=== PATIENT | female | born 2000 | race Caucasian/White ===

== ENCOUNTER 2024-08-07 09:37 | Inpatient (IN) | payer BC, SELFPAY ==
[2024-08-07] VITALS (17 sets, daily range): BP systolic 110–151; BP diastolic 65–116; PULSE 57–128; RESP 16–20; TEMP 35.7–36.9; O2SAT 95–100; BMI 37.6
[2024-08-07] MEDS: Lactated Ringers 1,000 ML 999 ML IV (10:10)
[2024-08-07 10:51] LABS: Absolute Lymphocyte Count 2.39 X10^3/uL (0.83-4.51); Absolute Neutrophil Count 7.8 X10^3/uL (2.0-7.7); Basophil# 0.05 X10^3/uL; Basophil% 0.5 % (0-1); Eosinophil# 0.04 X10^3/uL; Eosinophils% 0.4 % (0-5); Hematocrit 35.7 % (37-47); Hemoglobin 11.8 g/dL (12.0-15.0); Lymphocyte # 2.39 X10^3/ul (0.83-4.51); Lymphocyte % 21.7 % (19-41); Mean Corp Hgb Conc 33.1 g/dL (32-36); Mean Corpuscular Hgb 28.2 pg (27.0-32.0); Mean Corpuscular Volume 85.4 fL (81-99); Mean Platelet Vol. 11.8 fl (6.2-12.0); Monocyte# 0.68 X10^3/uL; Monocyte% 6.2 % (0-10); NRBC Flagged by Analyzer 0 % (0-5); Neutrophil # 7.76 X10^3/uL (2.7-7.7); Neutrophil % 70.4 % (47-70); Platelet Count 286 K/mm3 (150-450); RBC Distribution Width CV 12.7 % (11.6-14.6); Red Blood Count 4.18 M/mm3 (4.2-5.4)
[2024-08-07] MEDS: Lactated Ringers 1,000 ML 150 ML IV (11:12)
[2024-08-07 11:31] LABS: Syphilis Antibodies Nonreactive (Nonreactive)
[2024-08-07] MEDS: Acetaminophen 500 MG Tablet 1000 MG PO ×2 (12:03→18:01)
[2024-08-07] MEDS: Sodium Citrate/Citric Acid 30 ML UDC PO (12:03)
[2024-08-07] MEDS: Cefazolin 2 GM in 0.9% Normal Saline (100mL Bag) 100 ML IV (12:03)
--- NOTE | 2024-08-07 12:05 | PCM.HP.OB ---
HPI - General General Date of Admission: 08/07/24 Date of Service: 08/07/24 Chief Complaint: primary c/s HPI Narrative AMNA WILLIS, is a 23 F who presents PCS for LGA. Maternal Data Information Final KODY: 08/14/24 Gestational age: 39 PFSH PFS Medical History (Updated 08/07/24 @ 12:[address] Marlys Hall MD) Family history of hearing loss at age younger than 7 years Polyhydramnios Anxiety Home Medications ?Medication ?Instructions ?Recorded ?Last Taken ?Type aspirin 81 mg tablet,delayed 81 mg PO DAILY 08/07/24 Unknown History release vit no.95-ferrous 1 tab PO DAILY 08/07/24 Unknown History fumarate 28 mg-folic acid 800 mcg tablet () Allergy/AdvReac Type Severity Reaction Status Date / Time No Known Allergies Allergy Verified 08/07/24 09:49 Surgical History (Updated 08/07/24 @ 10:37 by Venecia Shelby) History of surgery Social History Smoking Status: Former smoker History 1 Elective abortions Hx Para 0 Spontaneous abortions Hx # Term Pregnancies Ectopic pregnancies Hx # Pregnancies Multiple births # of living children NST FHR Rate Baby A NST Reactive:: Yes ROS Constitutional Constitutional: Denies fatigue, fever(s) or malaise Eyes Eyes: Denies change in vision ENT HEENT: Denies dizziness or headache(s) Cardiovascular Cardiovascular: Denies chest pain, dyspnea or lightheadedness Respiratory/Chest Respiratory/Chest: Denies cough or dyspnea Gastrointestinal Gastrointestinal: Denies change in bowel habits Genitourinary Genitourinary: Denies burning urination or genital lesions Integumentary Integumentary: Denies rash Neurologic Neurologic: Denies confusion, dizziness, headache(s), numbness or weakness Vital Signs Vital Signs Vital Signs: 08/07/24 10:16 08/07/24 10:16 08/07/24 10:16 Temperature Temperature Source Temporal Pulse Rate 115 H Respiratory Rate Blood Pressure 124/77 H BP Systolic 124 BP Diastolic 77 Pulse Ox 08/07/24 10:16 08/07/24 10:16 08/07/24 10:16 Temperature 98.2 F Temperature Source Pulse Rate Respiratory Rate 18 Blood Pressure BP Systolic BP Diastolic Pulse Ox 96 Weight Weight: 109 kg Body Mass Index (BMI) 37.6 Physical Exam Const alert and no apparent distress General Appearance: cooperative HEENT normocephalic Resp normal respiratory effort Cardio regular rate GI soft to palpation GI Narrative: gravid, nontender, appropriate for gestational age Extremity no calf tenderness General Extremity: edema Skin no wounds Rashes: No rashes noted Psych activity/motor behavior normal Labs Labs Labs: Blood Type AB POSITIVE Antibody Screen NEGATIVE Hct 35.7 % (37-47) L Hgb 11.8 g/dL (12.0-15.0) L Syphilis Total Ab Nonreactive (Nonreactive) Assessment & Plan (1) LGA (large for gestational age) fetus: (2) 39 weeks gestation of : PLAN: Plan PCS
[2024-08-07 12:50] LABS: Amphetamine Urine NEGATIVE (<1000 ng/mL); Barbiturate Urine NEGATIVE (< 200 ng/mL); Benzodiazepine Urine NEGATIVE (< 200 ng/mL); Buprenorphine Urine NEGATIVE (< 200 ng/mL); Cocaine Urine NEGATIVE (< 300 ng/mL); Fentanyl, Urine NEGATIVE; Methadone Urine NEGATIVE (< 300 ng/mL); Opiates Urine NEGATIVE (< 300 ng/mL); Oxycodone, Urine NEGATIVE (< 100 ng/mL); PCP Urine NEGATIVE (< 25 ng/mL); THC Urine NEGATIVE (< 50 ng/mL)
--- NOTE | 2024-08-07 13:01 | EX.PCM.OBRPT ---
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 She was prepped and draped in the normal sterile fashion. A Pfannenstiel incision was made and carried down to the underlying fascia. The fascia was incised in the midline and extended laterally. The fascia was dissected from the muscle. The muscles divided in the midline. The peritoneum was entered bluntly and extended manually. A bladder blade was placed. A bladder flap was created. A low transverse incision was made and extended bluntly. The head was elevated to the incision. The shoulders delivered easily. The infant cried upon delivery. The cord was cut and clamped. The placenta was delivered with nakia traction. The uterus was exteriorized and cleared of all clot and debris. The incision was repaired with 1-0 Vicryl x 2. The uterus was returned the abdomen, The gutter cleared of all clots. The peritoneum was closed with 2-0 Monocryl. The fascia was closed with 1-0 Vicryl. The subcutaneous tissue was reapproximated with 2-0 Monocryl The skin was closed with 4-0. I performed the major parts of the procedure with the RFNA assisting with retraction and closing the skin. The sponge lap and needle count was correct x 2 Surgical findings: normal anatomy Presentation: Vertex and LOP Amniotic Membrane Rupture Type: Artificial Amniotic Fluid Description: Clear Placental Delivery Description: Manual Removal Placenta Disposition: [facility] Specimen collected: No Cord Vessel Description: 3 Vessels Cord Entanglement: None Infant A gender: Female (1 minute): 8 (5 minute): 9 Delayed Cord Clamping: Yes Public Safety Officer final cigar and box examiner: Yes Boiler Control Room Operator: Coty Valles Tasks completed by financial administrative assistant: Opening & closing and Retracting Additional business office assistant?: No Complications Complications: No
--- NOTE | 2024-08-07 13:02 | PCM.POST.ANE ---
Anesthesia: Postop Eval I Current Vital Signs Temperature: 97 F Pulse Rate: 75 Blood Pressure: 116/65 Respiratory Rate: 16 Pulse Ox: 100 Oxygen Delivery Method: Room Air Assessment Airway patent: Yes Spontaneous unlabored respirations: Yes Mental status: Awake and Calm nausea: No Vomiting: No Anesthesia Complication: No Fluid Hydration Crystalloid volume administer (ml): 1,000 Total IV fluid infused: 1,000 Progress Note Anesthesia document: Postop Eval 1 completed: Yes
--- NOTE | 2024-08-07 13:05 | POSTOPAN2_ITS ---
Anesthesia Postop Eval I Sum Postop Eval Completion status Anesthesia document: Postop Eval 1 completed: Yes Anesthesia Postop Eval I Summary Anesthesia Postop Eval I Summary: Anesthesia Postop Eval I: Assessment Summary Airway patent Yes 08/07/24 13:02 PRODUCT DEVELOPMENT CONSULTANT.MDOT Spontaneous unlabored Yes 08/07/24 13:02 PRODUCT DEVELOPMENT CONSULTANT.MDOT respirations Mental status Awake,Calm 08/07/24 13:02 PRODUCT DEVELOPMENT CONSULTANT.MDOT nausea No 08/07/24 13:02 PRODUCT DEVELOPMENT CONSULTANT.MDOT Vomiting No 08/07/24 13:02 PRODUCT DEVELOPMENT CONSULTANT.MDOT Anesthesia Postop Eval I: Fluid Summary Crystalloid volume administer 1,000 08/07/24 13:02 PRODUCT DEVELOPMENT CONSULTANT.MDOT (ml) Colloids volume administered ( ml) Blood Product volume administered (ml) Total IV fluid infused 1,000 08/07/24 13:02 PRODUCT DEVELOPMENT CONSULTANT.MDOT Anesthesia Postop Eval I: Summary Notes Anesthesia Complication No 08/07/24 13:02 PRODUCT DEVELOPMENT CONSULTANT.MDOT Anesthesia Complication Comment: Post-operative progress note Anesthesia: Postop Eval II Evaluation Mental status: Awake and Calm Pain Level: 0 nausea: No Vomiting: No Complications Anesthesia Complication: No
--- NOTE | 2024-08-07 13:05 | PCM.POSTANE2 ---
Anesthesia Postop Eval I Sum Postop Eval Completion status Anesthesia document: Postop Eval 1 completed: Yes Anesthesia Postop Eval I Summary Anesthesia Postop Eval I Summary: Anesthesia Postop Eval I: Assessment Summary Airway patent Yes 08/07/24 13:02 JUNIOR HIGH MATH TEACHER.MDOT Spontaneous unlabored Yes 08/07/24 13:02 JUNIOR HIGH MATH TEACHER.MDOT respirations Mental status Awake,Calm 08/07/24 13:02 JUNIOR HIGH MATH TEACHER.MDOT nausea No 08/07/24 13:02 JUNIOR HIGH MATH TEACHER.MDOT Vomiting No 08/07/24 13:02 JUNIOR HIGH MATH TEACHER.MDOT Anesthesia Postop Eval I: Fluid Summary Crystalloid volume administer 1,000 08/07/24 13:02 JUNIOR HIGH MATH TEACHER.MDOT (ml) Colloids volume administered ( ml) Blood Product volume administered (ml) Total IV fluid infused 1,000 08/07/24 13:02 JUNIOR HIGH MATH TEACHER.MDOT Anesthesia Postop Eval I: Summary Notes Anesthesia Complication No 08/07/24 13:02 JUNIOR HIGH MATH TEACHER.MDOT Anesthesia Complication Comment: Post-operative progress note Anesthesia: Postop Eval II Evaluation Mental status: Awake and Calm Pain Level: 0 nausea: No Vomiting: No Complications Anesthesia Complication: No
[2024-08-07] MEDS: Oxytocin 15 Units/NS 250ml 15 UNITS/250 ML IV.SOLN 83 UNITS IV (13:20)
--- NOTE | 2024-08-07 14:05 | NURSING ---
1400-noted small clot w fundal assessment.
[2024-08-07] MEDS: Ketorolac 30 MG/ML Syringe IV ×2 (14:49→21:57)
[2024-08-07] MEDS: 0.9% Saline Lock 10 ML Syringe IV ×3 (16:25→21:57)
[2024-08-07] MEDS: Ondansetron 4 MG/2 ML Vial IV (17:22)
[2024-08-08 00:40] VITALS: BP 117/79; PULSE 71; RESP 14; TEMP 36.5; O2SAT 100
[2024-08-08] MEDS: Acetaminophen 500 MG Tablet 1000 MG PO ×4 (00:52→19:08)
[2024-08-08] MEDS: Ketorolac 30 MG/ML Syringe IV ×2 (04:37→10:36)
[2024-08-08] MEDS: 0.9% Saline Lock 10 ML Syringe IV (04:37)
[2024-08-08 04:40] VITALS: BP 127/71; PULSE 60; RESP 18; TEMP 36.3; O2SAT 98
[2024-08-08 06:05] LABS: Hematocrit 34.6 % (37-47); Hemoglobin 11.4 g/dL (12.0-15.0); Mean Corp Hgb Conc 32.9 g/dL (32-36); Mean Platelet Vol. 11.8 fl (6.2-12.0); Platelet Count 241 K/mm3 (150-450); RBC Distribution Width CV 12.7 % (11.6-14.6); RBC Distribution Width SD 38.9 fl (35.1-43.9); Red Blood Count 4.07 M/mm3 (4.2-5.4); White Blood Count 12.3 K/mm3 (4.4-11.0)
--- NOTE | 2024-08-08 07:22 | PN.OBGYN_ITS ---
Subjective Subjective Doing well. Ambulating and voiding without difficulty. Mild lochia. Breast feeding. Objective Data Objective Data Vital Signs: Vital Signs Temp Pulse Resp BP Pulse Ox O2 Del Method 97.4 F L 60 18 127/71 H 98 Room Air 08/08/24 04:40 08/08/24 04:40 08/08/24 04:40 08/08/24 04:40 08/08/24 04:40 08/08/24 04:40 Oxygen Delivery Method Room Air Weight: 109 kg Body Mass Index (BMI) 37.6 Intake & Output: Intake and Output for Last 24 Hours 08/06/24 08/07/24 08/08/24 23:59 23:59 23:59 Intake Total 2350 / 2350 Output Total 1475 / 2375 2099 / 2099 Balance / -2099 / Lab / Micro Data 08/08/24 05:35 Labs: Laboratory Results - last 24 hr 08/07/24 10:10: WBC 11.0, RBC 4.18 L, Hgb 11.8 L, Hct 35.7 L, MCV 85.4, MCH 28.2, MCHC 33.1, RDW Std Deviation 39.0, RDW Coeff of Karina 12.7, Plt Count 286, MPV 11.8, Immature Gran % (Auto) 0.800, Neut % (Auto) 70.4 H, Lymph % (Auto) 21.7, [place] % (Auto) 6.2, Eos % (Auto) 0.4, Baso % (Auto) 0.5, Absolute Neuts (auto) 7.8 H, Absolute Lymphs (auto) 2.39, Nucleated RBC % 0, Syphilis Total Ab Nonreactive, Blood Type AB POSITIVE, Antibody Screen NEGATIVE 08/07/24 11:25: Urine Opiates Screen NEGATIVE, U Buprenorphine Qual NEGATIVE, Ur Oxycodone Screen NEGATIVE, Urine Methadone Screen NEGATIVE, Urine Fentanyl Screen NEGATIVE, Ur Barbiturates Screen NEGATIVE, Ur Phencyclidine Scrn NEGATIVE, Ur Amphetamines Screen NEGATIVE, U Benzodiazepines Scrn NEGATIVE, Urine Cocaine Screen NEGATIVE, U Cannabinoids Screen NEGATIVE 08/08/24 05:35: WBC 12.3 H, RBC 4.07 L, Hgb 11.4 L, Hct 34.6 L, MCV 85.0, MCH 28.0, MCHC 32.9, RDW Std Deviation 38.9, RDW Coeff of Karina 12.7, Plt Count 241, MPV 11.8 ROS Constitutional Constitutional: Denies headache(s) Cardiovascular Cardiovascular: Denies chest pain or dyspnea Gastrointestinal Gastrointestinal: Denies nausea or vomiting Genitourinary Genitourinary: Denies dysuria Physical Exam Const alert General Appearance: cooperative Eyes PERRL and EOMs intact bilaterally Resp normal respiratory effort GI soft to palpation and non-tender GI Narrative: soft, moderate distention, fundus firm, appropriately tender. Abdominal bandage clean dry and intact Uterus Palpation: uterus fundus firm ( below umbilicus) Extremity normal to inspection and full ROM Neuro oriented x3 and CN's II-XII intact bilaterally Psych mental status grossly normal Assessment & Plan (1) S/P : (2) LGA (large for gestational age) fetus: PLAN: Plan Routine post care
[2024-08-08 07:29] VITALS: BP 114/58; PULSE 66; RESP 17; TEMP 36.8; O2SAT 97
[2024-08-08] MEDS: Senna/Docusate Sodium 1 Tablet PO (10:36)
[2024-08-08] MEDS: MEASLES,MUMPS,RUBELLA VACC/PF 0.5 ML SC (10:37)
[2024-08-08 13:11] VITALS: BP 112/63; PULSE 62; RESP 17; O2SAT 97
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
[2024-08-08] MEDS: Ibuprofen 600 MG Tablet PO ×2 (16:27→22:46)
[2024-08-08 21:00] VITALS: BP 127/88; PULSE 71; RESP 16; TEMP 36.4; O2SAT 98
[2024-08-09 01:00] VITALS: BP 120/75; PULSE 62; RESP 15; TEMP 36.6; O2SAT 97
[2024-08-09] MEDS: Acetaminophen 500 MG Tablet 1000 MG PO ×2 (01:31→06:53)
[2024-08-09 04:15] VITALS: BP 115/63; PULSE 64; RESP 16; TEMP 36.6; O2SAT 98
[2024-08-09] MEDS: Ibuprofen 600 MG Tablet PO ×2 (04:32→10:13)
--- NOTE | 2024-08-09 07:06 | PCM.DC.SUM ---
Providers Date of Admission: 08/07/24 Primary Care Physician: No Primary Care Phys Reason For Visit: PRIMARY Diagnosis Discharge Diagnosis (1) S/P : Status: Acute Code(s): Z98.891 - History of uterine scar from previous surgery (2) LGA (large for gestational age) fetus: Status: Acute (3) Care and examination of lactating mother: Status: Acute Code(s): Z39.1 - Encounter for care and examination of lactating mother Medications at Discharge Home Medications vit no.95-ferrous fumarate 28 mg-folic acid 800 mcg tablet () 1 tab PO DAILY 08/07/24 acetaminophen 500 mg tablet 1,000 mg (2 x 500 mg) PO Q6 #0 tabs 08/09/24 ibuprofen 600 mg tablet 600 mg PO Q6H #0 tabs 08/09/24 sennosides 8.6 mg-docusate sodium 50 mg tablet (Stimulant Laxative Plus) 1 - 2 tab PO DAILY #0 tabs 08/09/24 Hospital Course Operations section Procedures None Summary of Care Provided Minutes Spent on Discharge: 15 Hospital Course: Patient had section. Hospital course was uneventful. Physical Exam Narrative Patient seen at bedside. Denies pain. Ambulating and voiding without difficulty. Passing Flatus. Lochia decreased. with minimal support. Desires discharge home today. Const alert and no apparent distress General Appearance: cooperative and comfortable Exam Limitations: no limitations HEENT normocephalic Eyes General Eye: normal appearance of both eyes Neck full ROM General: normal visual inspection Chest Chest: symmetrical chest wall rise Resp normal respiratory effort and normal air movement Effort and Inspection: symmetric chest movement Auscultation: clear to auscultation bilaterally Cardio regular rate and regular rhythm GI normal to inspection, nondistended, normoactive bowel sounds Back/Spine normal ROM Extremity full ROM and no calf tenderness General Extremity: normal exam except as noted Skin no rashes or lesions noted Wound Narrative: Dressing is dry and intact. Neuro CN's II-XII intact bilaterally Psych mental status grossly normal Weight / BMI Weight Weight: 240 lb 4.862 oz Body Mass Index (BMI) 37.6 ABG / Lab / Microbiology Data 08/08/24 05:35 D/C Instructions Discharge Diet: No restrictions Discharge Activity: May Drive (2 weeks) and May Shower May resume sexual activity in: 6-8 weeks Weight Bearing Status: Weight bearing as tolerated Lifting Restricted to (Lbs): 25 Call your doctor if your incision/area has: Continuous Slow Oozing, Sudden Increased Bleeding, Increased Pain/ Swelling, Increased Redness, Foul Smelling Discharge and Swelling at the incision site Call your doctor if you observe: Fever of 101 or Higher, Numbness or Tingling, Using more than 1 pad per hour, Shortness of breath, Dizziness, Swelling in the ankles, Chest pain, Calf discomfort and Uncontrolled pain Suture Line Care: Avoid Pulling/Pushing Remove Dressing in: 5 days (Remove yourself or call office and schedule appointment for dressing removal.) DC O2, CPAP, BIPAP Needs Home O2 Discharge instructions: No When: 5 days for dressing removal or 2 weeks for post appointment. Meaningful Use Info Meaningful Use Meaningful Use Diagnoses (Choose all that apply): None applicable Ischemic Stroke Statin Dosing Therapy Reference: STATIN DOSE THERAPY REFERENCE: * Patients > 75 years receive moderate or high dose statin therapy. * Patients 75 years or YOUNGER should receive HIGH intensity statin dose unless contraindicated. You will be required to document reason for non-treatment if statin daily dose does not meet guidelines. HIGH DOSE STATIN THERAPY DAILY Atorvastatin > than or = to 40 mg Rosuvastatin > than or = to 20 mg Amlodipine + Atorvastatin > than or = to 2.5/40 mg Ezetimibe + Simvastatin 10/80 mg Simvastatin 80mg Discharge Plan Admission Admit Date/Time: 08/07/24 09:37 Primary Reason for Your Visit: Primary C/S Attending Provider: Marlys Hall Primary Care Provider: Care Physician,No Primary Discharge Orders/Prescriptions Prescriptions: New sennosides-docusate sodium [Stimulant Laxative Plus] 8.6-50 mg Tablet 1 - 2 tab PO DAILY Qty: 0 0RF acetaminophen 500 mg Tablet 1,000 mg PO Q6 Qty: 0 0RF ibuprofen 600 mg Tablet 600 mg PO Q6H Qty: 0 0RF Continued PNV cmb#95-ferrous fumarate-FA [] 28 mg iron- 800 mcg tablet 1 tab PO DAILY Discontinued aspirin 81 mg tablet,delayed release (DR/EC) 81 mg PO DAILY Referrals / Follow Up: Care Physician,No Primary [Primary Care Provider] - Disposition Disposition (needs filled in before D/C Order can be placed): Home, Self Care
[2024-08-09 07:45] VITALS: BP 128/85; PULSE 65; RESP 16; TEMP 36.6; O2SAT 100
[2024-08-09] MEDS: Senna/Docusate Sodium 1 Tablet PO (10:13)
[2024-08-09 12:49] VITALS: BP 130/76; PULSE 72; RESP 16; TEMP 36.4; O2SAT 99
--- NOTE | 2024-08-13 10:56 | NURSING ---
Follow up phone call : Patient did not answer, LVM.
== END 2024-08-09 12:50 | disposition home or self-care (01) | DRG 788 ==
PROVIDERS: Admitting Provider Obstetrics & Gynecology; Referring Provider Obstetrics & Gynecology; Visit Provider Obstetrics & Gynecology
PROC: 10D00Z1 Extraction of Products of Conception, Low, Open Approach (ICD-10-PCS; CPT 59514; principal; 2024-08-07 11:45)
DX: O36.63X0 Maternal care for excessive fetal growth, third trimester, not applicable or unspecified (principal); Z37.0 Single live birth; Z3A.39 39 weeks gestation of pregnancy; Z79.82 Long term (current) use of aspirin; Z87.891 Personal history of nicotine dependence
CPT/HCPCS: 59025; 59050; 80307; 85025; 85027; 86780; 86850; 86900; 86901; 99221; A4216; G0378; J2405